=== PATIENT | male | born 1970 | race Caucasian/White ===

== ENCOUNTER 2021-08-09 02:43 | Observation (INO) ==
[2021-08-09] MEDS ORDERED: Aspirin 81 MG TAB.CHEW PO ONE ×2 (03:01→03:04)
[2021-08-09] MEDS ORDERED: Ondansetron 4 MG/2 ML VIAL IVP ONE (03:01)
[2021-08-09] MEDS ORDERED: Isovue-370 500 ML BOTTLE IVP ONE (03:06)
[2021-08-09] MEDS ORDERED: 0.9 % Sodium Chloride 1,000 ML IVC ONE (03:12)
[2021-08-09 03:14] LABS: Basophils # 0.1 K/mcL (0.0-0.2); Basophils % 0.7 %; Eosinophils # 0.4 K/mcL (0.0-0.6); Hematocrit 45.9 % (37.5-50.1); Hemoglobin 15.5 g/dL (12.9-16.9); Immature Granulocytes % 0.4 % (0-4); Lymphocytes # 3.1 K/mcL (0.6-4.6); Lymphocytes % 24.6 %; Mean Corpuscular HGB Conc 33.8 g/dL (31.6-35.5); Mean Corpuscular Volume 91.8 fL (83.0-100.0); Mean Platelet Volume 10.1 fL (9.4-12.4); Monocytes # 1.3 K/mcL (0.0-1.3); Monocytes % 10.1 %; Neutrophils # 7.7 K/mcL (1.6-8.9); Platelet Count 262 K/mcL (140-400); Red Cell Distribution Width 12.5 % (11.5-14.5); Segmented Neutrophils % 61.2 %; White Blood Count 12.6 K/mcL (4.3-11.1)
[2021-08-09 03:22] LABS: Prothrombin Time 11.5 Seconds (9.4-12.1)
[2021-08-09 03:25] LABS: Activated Partial Thrombo Time 35.2 Seconds (26.0-36.0)
[2021-08-09 03:39] LABS: BUN/Creatinine Ratio 17 (6-26); Blood Urea Nitrogen 16 mg/dL (6-20); Calcium 9.6 mg/dL (8.6-10.3); Carbon Dioxide 27 mEq/L (23-29); Chloride 102 mEq/L (98-107); Glucose 117 mg/dL (70-105); Osmolality,Calculated 290 (280-300); Potassium 3.8 mEq/L (3.5-5.1); Sodium 139 mEq/L (136-145); Troponin I < 0.03 ng/mL (< 0.04); eGFR For African Americans > 60 (> 60); eGFR For Non-African Americans > 60 (> 60)
[2021-08-09] MEDS ORDERED: *HR* Heparin 5,000 UNIT/ML VIAL IVP ONE (04:46)
[2021-08-09] MEDS ORDERED: *HR* Heparin 5,000 UNIT/ML VIAL IVP PRN ×2 (04:46)
[2021-08-09] MEDS ORDERED: Heparin 25,000UNIT/250ML 1/2NS 25,000 UNIT/250 ML IV.SOLN IVC SCH (05:00)
[2021-08-09] MEDS ORDERED: Acetaminophen 325 MG TABLET PO PRN (05:07)
[2021-08-09] MEDS ORDERED: Ondansetron 4 MG/2 ML VIAL IVP PRN (05:07)
[2021-08-09] MEDS ORDERED: Naloxone 0.4 MG/ML INJ IVP PRN (05:07)
[2021-08-09] MEDS ORDERED: Perflutren Lipid Microsphere 1.3 ML in 0.9 % Sodium Chloride 8.7 ML IVP PRN (05:12)
[2021-08-09 07:20] LABS: Hematocrit 44.6 % (37.5-50.1); Hemoglobin 14.5 g/dL (12.9-16.9); Mean Corpuscular HGB Conc 32.5 g/dL (31.6-35.5); Mean Corpuscular Hemoglobin 30.9 pg (28.0-33.3); Mean Corpuscular Volume 94.9 fL (83.0-100.0); Mean Platelet Volume 10.5 fL (9.4-12.4); Platelet Count 259 K/mcL (140-400); Red Cell Distribution Width 12.3 % (11.5-14.5); White Blood Count 11.7 K/mcL (4.3-11.1)
[2021-08-09 07:28] LABS: INR 1.1; Prothrombin Time 11.7 Seconds (9.4-12.1)
[2021-08-09] MEDS ORDERED: Regadenoson 0.4 MG/5 ML SYRINGE IVP ONE (07:35)
[2021-08-09 07:42] LABS: Chol/HDL Ratio 4.4 (0-4.9); Magnesium 1.8 mg/dL (1.6-2.6)
[2021-08-09 11:44] LABS: Estimated Average Glucose 123 mg/dl; Hemoglobin A1C 5.9 %
[2021-08-09] MEDS ORDERED: lisinopriL 20 MG TABLET PO SCH (13:00)
[2021-08-09 15:01] VITALS: BP 197/92; PULSE 64; TEMP 97.6; O2SAT 99
[2021-08-10] MEDS ORDERED: Aspirin Enteric Coated 81 MG Tablet PO SCH (09:00)
== END 2021-08-09 18:48 | disposition home or self-care (01) ==
LOC: EMEROOARM 02:43 → 3BNU 02:43 → SUATTDRO 05:04 → 3BNU 05:18
PROVIDERS: ADMIT Internal Medicine; ATTEND Internal Medicine